=== PATIENT | male | born 1950 | race Hispanic/Latino ===

== ENCOUNTER 2018-12-16 12:21 | Day surgery (SDC) | payer OTHER ==
--- OUTSIDE RECORDS SUMMARY | 2018-12-16 12:28 | XMS REPORT ---
:1950 Author Organization eClinicalWorks Care Team Providers Name Role Phone Yoan Scales Provider Role Unavailable Allergies No Known Allergies Problems Problem Type Condition Code Onset Dates Condition Status Problem Unspecified urinary incontinence R32 Active Problem Anemia, chronic disease D63.8 Active Problem Type 2 diabetes mellitus without E11.9 Active complications Problem 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 incontinence Assessment Type 2 diabetes mellitus without E11.9 Active complications Problem Urge incontinence of urine N39.41 Active Problem CPAP (continuous positive airway Z99.89 Active pressure) dependence Problem Erectile dysfunction N52.9 Active Problem Allergic rhinitis, seasonal J30.2 Active Problem residential current use of insulin Z79.4 Active Problem Benign essential hypertension I10 Active Problem ANA (obstructive sleep apnea) G47.33 Active Assessment Hyperlipidemia E78.5 Active Assessment Benign essential hypertension I10 Active Problem Hyperlipidemia E78.5 Active Problem BMI 45.0-49.9, adult Z68.42 Active Problem Carotid artery stenosis and I65.29 Active occlusion Problem H/O Mar's palsy Z86.69 Active Problem Vitamin D deficiency E55.9 Active Problem Chronic vertigo R42 Active Medications Medication Code Code Instructions Start End Date Status Dosage System Date Bystolic [facility] 29758226402 20 MG Orally Active 1 tablet Once a day Olmesartan [facility] 31028378721 20 MG Orally Active 1 tablet Medoxomil Once a day Lovastatin [facility] 49608076403 20 MG Orally Active 1 tablet Once a day with a meal Metformin HCl [facility] 12717616300 500 MG Orally Active 1 tablet Twice a day with meals Amlodipine [facility] 04906457775 5 MG Orally Once Active 1 tablet Besylate a day Results No Known Results Summary Purpose eClinicalWorks Submission
--- OUTSIDE RECORDS SUMMARY | 2018-12-16 12:28 | XMS REPORT ---
:1950 Author Organization eClinicalWorks Care Team Providers Name Role Phone Yordy Yoan Provider Role Unavailable Allergies, Adverse Reactions, Alerts Substance Reaction Event Type Watermelon Info Not Available Non Drug Allergy Avacado Info Not Available Non Drug Allergy Problems Problem Type Condition Code Onset Dates Condition Status Assessment Dizziness and giddiness R42 Active Assessment Unspecified urinary incontinence R32 Active Assessment care home current use of insulin Z79.4 Active Problem H/O Mar's palsy Z86.69 Active Assessment Anemia, chronic disease D63.8 Active Problem Chronic vertigo R42 Active Assessment Vitamin D deficiency E55.9 Active Problem Unspecified urinary incontinence R32 Active Problem Anemia, chronic disease D63.8 Active Problem Type 2 diabetes mellitus without E11.9 Active complications Problem 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 incontinence Problem Urge incontinence of urine N39.41 Active Assessment Benign essential hypertension I10 Active Assessment Hyperlipidemia E78.5 Active Problem CPAP (continuous positive airway Z99.89 Active pressure) dependence Assessment H/O Mar's palsy Z86.69 Active Problem Erectile dysfunction N52.9 Active Problem Allergic rhinitis, seasonal J30.2 Active 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 Problem Benign essential hypertension I10 Active Problem ANA (obstructive sleep apnea) G47.33 Active Assessment ANA (obstructive sleep apnea) G47.33 Active Assessment Type 2 diabetes mellitus without E11.9 Active complications Problem Hyperlipidemia E78.5 Active Problem BMI 45.0-49.9, adult Z68.42 Active Problem Carotid artery stenosis and I65.29 Active occlusion Problem Vitamin D deficiency E55.9 Active Medications Medication Code Code Instructions Start End Status Dosage System Date Date Lovastatin [facility] 01908032138 20 MG Orally Active 1 tablet Once a day with a meal Bystolic [facility] 51149461082 20 MG Orally Active 1 tablet Once a day Aspirin ND 60073703072 81 MG Orally Active 1 tablet Once a day Metformin HCl ND 59800233396 500 MG Orally Active 1 tablet Twice a day with meals HydrALAZINE HCl [facility] 05426289779 100 MG Orally Active 1 tablet Three times a with food day CPap titration [facility] 95256700709 5 (28)-10 (21) Active not MG Orally defined Lovastatin [facility] 49301085742 20 MG Active TAKE 1 TABLET WITH A MEAL ONE TIME DAILY Olmesartan [facility] 96311081651 20 MG Orally Active 1 tablet Medoxomil Once a day Olmesartan [facility] 07960828054 20 MG Orally Active 1 tablet Medoxomil Once a day Daily Multiple NDC 0 Active not Vitamin/Iron defined Flonase Allergy [facility] 43492488322 50 MCG/ACT Active 1 spray in Relief Nasally Once a each day nostril Toujeo SoloStar [facility] 00726498092 300 UNIT/ML Active 55 units Subcutaneous 50 units every other night HydrALAZINE HCl [facility] 19465338956 100 MG Active TAKE 1 TABLET THREE TIMES DAILY WITH FOOD Amlodipine [facility] 22731367771 5 MG Orally Once Active 1 tablet Besylate a day Bystolic [facility] 34789417406 20 MG Active TAKE 1 TABLET EVERY DAY Vitamin D3 [facility] 14047799832 5000 UNIT Orally Active 1 capsule Maximum Once a day Strength Results No Known Results Summary Purpose eClinicalWorks Submission
--- OUTSIDE RECORDS SUMMARY | 2018-12-16 12:28 | XMS REPORT ---
:1950 Author Organization eClinicalWorks Care Team Providers Name Role Phone Yordy Yoan Provider Role Unavailable Allergies No Known Allergies [...] Problem Allergic rhinitis, seasonal J30.2 Active Problem jail current use of insulin Z79.4 Active Problem Benign essential hypertension I10 Active Problem ANA (obstructive sleep apnea) G47.33 Active Problem Hyperlipidemia E78.5 Active Problem BMI 45.0-49.9, adult Z68.42 Active Problem Carotid artery stenosis and I65.29 Active occlusion Problem H/O Mar's palsy Z86.69 Active Problem Vitamin D deficiency E55.9 Active Problem Chronic vertigo R42 Active Medications No Known Medications Results No Known Results Summary Purpose eClinicalWorks Submission
--- OUTSIDE RECORDS SUMMARY | 2018-12-16 12:28 | XMS REPORT ---
[...] Assessment Unspecified urinary incontinence R32 Active Assessment [facility] current use of insulin Z79.4 Active Problem [...] Problem Allergic rhinitis, seasonal J30.2 Active Problem [facility] current use of insulin Z79.4 Active Problem [...] Start End Status Dosage System Date Date Cozaar [facility] 78004762568 100 MG Orally Inactive 1 tablet Once a day Bystolic [facility] 68195798316 20 MG Orally Active 1 tablet Once a day Cozaar [facility] 40092955725 100 MG Orally Active 1 tablet Once a day CPap titration [facility] 83571792877 5 (28)-10 (21) Active not MG Orally defined HydrALAZINE HCl ND 08271006115 100 MG Orally Active 1 tablet Three times a with food day Bystolic ND 95595146928 20 MG Active TAKE 1 TABLET ONE TIME DAILY Daily Multiple NDC 0 Active not Vitamin/Iron defined HydrALAZINE HCl [facility] 36644954857 100 MG Active TAKE 1 TABLET THREE TIMES DAILY WITH FOOD Olmesartan [facility] 03828965637 20 MG Orally Active 1 tablet Medoxomil Once a day Metformin HCl [facility] 94154356501 500 MG Orally Active 1 tablet Twice a day with meals Toudonna LiebermanoStar [facility] 18053939542 300 UNIT/ML Active 55 units Subcutaneous 50 units every other night Amlodipine [facility] 13957187119 5 MG Orally Active 1 tablet Besylate Once a day Vitamin D3 [facility] 10660251051 5000 UNIT Active 1 capsule Maximum Orally Once a Strength day Lovastatin [facility] 87375103974 20 MG Orally Active 1 tablet Once a day with a meal Lovastatin [facility] 84548033089 20 MG Active TAKE 1 TABLET WITH A MEAL ONE TIME DAILY Aspirin [facility] 14387518024 81 MG Orally Active 1 tablet Once a day Flonase Allergy [facility] 36533193167 50 MCG/ACT Active 1 spray in Relief Nasally Once a each day nostril Olmesartan [facility] 61433807858 20 MG Orally Jun 20, Active 1 tablet Medoxomil Once a day 2018 Results No Known Results Summary Purpose eClinicalWorks Submission
--- OUTSIDE RECORDS SUMMARY | 2018-12-16 12:28 | XMS REPORT ---
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 Problem Allergic rhinitis, seasonal J30.2 Active Assessment Anemia, chronic disease D63.8 Active Problem Erectile dysfunction N52.9 Active Problem [facility] current use of insulin Z79.4 Active Problem Benign essential hypertension I10 Active Problem 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 incontinence Problem BMI 45.0-49.9, adult Z68.42 Active Assessment Hyperlipidemia E78.5 Active Assessment H/O Mar's palsy Z86.69 Active Problem Urge incontinence of urine N39.41 Active Assessment Vitamin D deficiency E55.9 Active Problem Carotid artery stenosis and I65.29 Active occlusion Problem ANA (obstructive sleep apnea) G47.33 Active Problem Hyperlipidemia E78.5 Active Problem Vitamin D deficiency E55.9 Active Assessment Type 2 diabetes mellitus without E11.9 Active complications Assessment Benign essential hypertension I10 Active Assessment ANA (obstructive sleep apnea) G47.33 Active Problem Unspecified urinary incontinence R32 Active Problem Type 2 diabetes mellitus without E11.9 Active complications Problem H/O Mar's palsy Z86.69 Active Problem Chronic vertigo R42 Active Medications Medication Code Code Instructions Start End Status Dosage System Date Date HydrALAZINE HCl ND 89143845804 100 MG Orally Active 1 tablet Three times a with food day Flonase Allergy ND 26637177417 50 MCG/ACT Active 1 spray in Relief Nasally Once a each day nostril [place] SoloStar ND 39186266193 300 UNIT/ML Active 55 units Subcutaneous 50 units every other night Lovastatin ND 55168679497 20 MG Orally Active 1 tablet Once a day with a meal CPap titration ND 71783030693 5 (28)-10 (21) Active not MG Orally defined Aspirin [facility] 26131136826 81 MG Orally Active 1 tablet Once a day Vitamin D3 [facility] 27301591483 5000 UNIT Orally Active 1 capsule Maximum Once a day Strength Metformin HCl [facility] 62900792401 500 MG Orally Active 1 tablet Twice a day with meals Bystolic [facility] 29035869332 20 MG Orally Active 1 tablet Once a day Lovastatin [facility] 33864948676 20 MG Orally Active 1 tablet Once a day with a meal Daily Multiple NDC 0 Active not Vitamin/Iron defined Bystolic [facility] 39540486210 20 MG Orally Active 1 tablet Once a day HydrALAZINE HCl [facility] 13250844737 100 MG Orally Active 1 tablet Three times a with food day Cozaar [facility] 92082086279 100 MG Orally Active 1 tablet Once a day Amlodipine [facility] 34522281017 5 MG Orally Once Active 1 tablet Besylate a day Cozaar [facility] 37752642395 100 MG Orally Active 1 tablet Once a day Results No Known Results Summary Purpose eClinicalWorks Submission
--- OUTSIDE RECORDS SUMMARY | 2018-12-16 12:28 | XMS REPORT ---
:1950 Author Organization eClinicalWorks Care Team Providers Name Role Phone Yordy Yoan Provider Role Unavailable Allergies No Known Allergies Problems Problem Type Condition Code Onset Dates Condition Status Problem Erectile dysfunction N52.9 Active Problem [facility] current use of insulin Z79.4 Active Problem Benign essential hypertension I10 Active Problem 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 incontinence Problem BMI 45.0-49.9, adult Z68.42 Active Problem Urge incontinence of urine N39.41 Active Problem Carotid artery stenosis and I65.29 Active occlusion Problem ANA (obstructive sleep apnea) G47.33 Active Problem Hyperlipidemia E78.5 Active Problem Vitamin D deficiency E55.9 Active Problem Unspecified urinary incontinence R32 Active Problem Type 2 diabetes mellitus without E11.9 Active complications Problem H/O Mar's palsy Z86.69 Active Problem Anemia, chronic disease D63.8 Active Problem Chronic vertigo R42 Active Problem Allergic rhinitis, seasonal J30.2 Active Medications No Known Medications Results No Known Results Summary Purpose eClinicalWorks Submission
[2018-12-16] MEDS ORDERED: NS 0.9% VIAL 10 ML ONE (12:53)
[2018-12-16] MEDS ORDERED: NA CHLORIDE 0.9% 500 ML ONE (13:02)
[2018-12-16] MEDS ORDERED: TETRACAINE HCL 0.5% 4ML OPTH ONE (13:02)
[2018-12-16] MEDS ORDERED: LIDOCAINE 2% MPF 5 ML VIAL ONE ×2 (13:02→13:29)
[2018-12-16] MEDS ORDERED: BUPIVACAINE 0.25% PF 10 ML VIAL ONE (13:02)
[2018-12-16] MEDS: CYCLOPENTOLATE 1% OPTH 2 ML ONE ×3 (13:10→13:20)
[2018-12-16] MEDS: PHENYLEPHRINE 10% OPTH 5ML ONE ×3 (13:10→13:20)
[2018-12-16] MEDS ORDERED: PROPOFOL 200 MG/20 ML VIAL IV ONE (13:28)
[2018-12-16] MEDS: EPINEPHRINE/PF 1 MG/ML AMP ONE ×4 (13:42→13:53)
[2018-12-16] MEDS: BALANCED SALT IRRIG PLAIN 500 ML BTL IRR ONE ×2 (13:42→13:53)
[2018-12-16] MEDS: DUOVISC 1 KIT OPTH ONE ×2 (13:43→13:53)
[2018-12-16] MEDS: MOXIFLOXACIN HCL 10 DROPS/ML **OR USE OPTH ONE ×2 (13:44→13:53)
[2018-12-16] MEDS ORDERED: EPINEPHRINE/PF 1 MG/ML AMP ONE (13:59)
--- NOTE | 2018-12-16 14:19 | P.BOP ---
Preoperative diagnosis: Nuclear sclerotic and cortical cataract OS Postoperative diagnosis: Same Primary procedure: Phacoemulsification with IOL OS Estimated blood loss: None Anesthesia: Local (Subtenon's infusion with anesthesia for cataract surgery) Complications: None Implants: ZCB00 +23.5 Transferred to: Other (Day surgery) Condition: Good
--- NOTE | 2018-12-17 00:47 | OP ---
Date of Procedure: 12/16/2018 Surgeon: Radha Rich MD Anesthesiologist: Deandre Leger CRNA and Carlos Mahoney MD. Preoperative Diagnosis: Nuclear sclerotic and cortical cataract, left eye. Operation Performed: Phacoemulsification with intraocular lens implant, left eye. Anesthesia: Per cataract surgery. Complications: None. Description Of Procedure: In day surgery, the patient was prepped with Betadine and draped. A conju nctival incision was made in the inferior nasal quadrant with Deion scissors. A sub-Tenon block c onsisting of a 1:1 mixture of 2% Xylocaine and 0.25% bupivacaine was placed through the conjunctival incision with a blunt cannula. A Honan balloon was placed over the eye and the patient was transferr ed to the operating room. In the operating room the patient was prepped and draped in the usual sterile fashion for ophthalmic surgery. A lid speculum was placed in the left eye. Two paracentesis sites were made superiorly and inferiorly in the limbal cornea. Viscoat was placed in the anterior chamber and a crescent blade wa s used to make a corneal groove and tunnel, and a keratome was used to enter the anterior chamber. P rovisc was placed in the anterior chamber and a 360 degree capsulotomy was performed with a cystitome . The lens was hydrodissected with BSS and rotated freely. The lens was removed with a stop and cho p technique. A 5.30 phaco CDE was used to remove the lens. Residual cortex was removed with the irr igation and aspiration. Provisc was placed in the capsular bag. A ZCB00 +23.5 lens was placed in th e capsular bag without complications. Irrigation and aspiration were used to remove residual viscoel astic. The paracentesis sites were hydrated with BSS. The wound and paracentesis sites were inspect ed and found to be watertight. Vigamox 0.07 cc was placed intracamerally at the end of the procedure . The eye was irrigated with balanced salt solution. The eye was patched with a soft cotton patch a nd Hawkins metal shield. The patient was returned to day surgery in good condition. Comments: A 1:5000 epinephrine was placed in the anterior chamber prior to Viscoat and the lens was hydrodelineated rather than hydrodissected. Discharge Instructions: Mr. Mejia is discharged to home in good condition and is to follow up with Dr Xiomara Rich in the morning. SRIDHAR/ELIZABETH Voice ID: [id number] Report ID: [id number]
== END 2018-12-16 14:56 | disposition home or self-care (01) ==
LOC: OR 12:21
PROVIDERS: ATTEND Ophthalmology Retina Specialist
PROC: 08RK3JZ Replacement of Left Lens with Synthetic Substitute, Percutaneous Approach (ICD-10-PCS; principal; 2018-12-16 12:40)
DX: H25.12 Age-related nuclear cataract, left eye (principal); H25.012 Cortical age-related cataract, left eye; E11.9 Type 2 diabetes mellitus without complications; I10 Essential (primary) hypertension; G47.33 Obstructive sleep apnea (adult) (pediatric); E66.01 Morbid (severe) obesity due to excess calories; Z68.42 Body mass index [BMI] 45.0-49.9, adult
CPT/HCPCS: 82962; 66984; J2704; J0171 ×3

== ENCOUNTER 2020-03-24 22:51 | Emergency (ER) | payer OTHER ==
--- OUTSIDE RECORDS SUMMARY | 2020-03-24 22:54 | XMS REPORT ---
:1950 Author Organization eClinicalWorks Care Team Providers Name Role Phone Yordy Yoan Provider Role Unavailable Allergies, Adverse Reactions, Alerts Substance Reaction Event Type Watermelon Info Not Available Non Drug Allergy [place] Info Not Available Non Drug Allergy Problems Problem Type Condition Code Onset Dates Condition Statu s Assessment snf current use of insulin Z79.4 Active Assessment Unspecified urinary incontinence R32 Active Assessment Vitamin D deficiency E55.9 Active Assessment Anemia, chronic disease D63.8 Acti ve Assessment H/O Mar's palsy Z86.69 Active Assessment Hyperlipidemia E78.5 Active Assessment Benign essential hypertension I10 Active Assessment Type 2 diabetes mellitus without E11.9 Active complications Assessment ANA (obstructive sleep apnea) G47.33 Active Problem Type 2 diabetes mellitus without E11.9 Active complications Assessment Right upper lobe pulmonary nodule R91.1 Active Problem Anemia, chronic disease D63.8 Acti ve Assessment Diplopia H53.2 Active Problem Allergic rhinitis, seasonal J30.2 Active Problem Benign essential hypertension I10 Active Problem Erectile dysfunction N52.9 Active Problem Right upper lobe pulmonary nodule R91.1 Active Problem Multiple lacunar infarcts I63.81 Ac tive Assessment Cerebral infarction due to I63.219 A ctive unspecified occlusion or stenosis of unspecified vertebral artery Problem Cerebral infarction due to I63.219 A ctive unspecified occlusion or stenosis of unspecified vertebral artery Assessment Multiple lacunar infarcts I63.81 Ac tive Problem 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 incontinence 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 Problem CPAP (continuous positive airway Z99.89 Active pressure) dependence Problem Urge incontinence of urine N39.41 A ctive Assessment Right leg weakness R29.898 Active Problem Vitamin D deficiency E55.9 Active Assessment Dizziness and giddiness R42 Acti ve Problem Hyperlipidemia E78.5 Active Problem ANA (obstructive sleep apnea) G47.33 Active Assessment History of falling Z91.81 Active Problem Carotid artery stenosis and I65.29 Active occlusion Problem Chronic vertigo R42 Active Problem Unspecified urinary incontinence R32 Active Problem BMI 45.0-49.9, adult Z68.42 Active Problem H/O Mar's palsy Z86.69 Active Medications Medication Code Code Instructions Start End Status Dosage System Date Date Flonase Allergy [facility] 32793492972 50 MCG/ACT Active 1 spray in Relief Nasally Once a each day nostril Metformin HCl ND 50361635077 500 MG Orally Active 1 tablet Twice a day with meals CPap titration [facility] 68877058402 5 (28)-10 () Active not MG Orally defined HydrALAZINE HCl [facility] 74521519379 100 MG Orally Active 1 tablet Three times a with food day Daily Multiple NDC 0 Active not Vitamin/Iron defined Toujeo SoloStar [facility] 25874749942 300 UNIT/ML Active 55 units Subcutaneous 50 units every other night Atorvastatin [facility] 24443563266 40 MG Orally Active 1 tablet Calcium Once a day Olmesartan [facility] 10613171652 40 MG Orally Active 1 ta blet Medoxomil Once a day Carvedilol [facility] 93724399750 6.25 MG Orally Active 1 tablet Twice a day with food Amlodipine ND 16321742625 5 MG Orally Active 1 tab let Besylate Once a day Aspirin ND 52666072981 81 MG Orally Active 1 table t Once a day Clopidogrel [facility] 49697648288 75 MG Orally Active 1 t ablet Bisulfate Once a day Vitamin D3 [facility] 29052856989 5000 UNIT Active 1 capsu le Maximum Orally Once a Strength day Lovastatin [facility] 69468900657 20 MG Orally Inactive 1 t ablet Once a day with a meal Results No Known Results Summary Purpose eClinicalWorks Submission
--- OUTSIDE RECORDS SUMMARY | 2020-03-24 22:54 | XMS REPORT ---
:1950 Author Organization eClinicalWorks Care Team Providers Name Role Phone Yordy Yoan Provider Role Unavailable Allergies No Known Allergies Problems Problem Type Condition Code Onset Dates Condition Statu s Problem Allergic rhinitis, seasonal J30.2 Active Problem Benign essential hypertension I10 Active Problem Erectile dysfunction N52.9 Active Problem Right upper lobe pulmonary nodule R91.1 Active Problem Multiple lacunar infarcts I63.81 Ac tive Assessment Right upper lobe pulmonary nodule R91.1 Active Assessment Incidental lung nodule R91.1 Activ e Problem Cerebral infarction due to I63.219 A ctive unspecified occlusion or stenosis of unspecified vertebral artery Problem 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 incontinence 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 Problem CPAP (continuous positive airway Z99.89 Active pressure) dependence Problem Urge incontinence of urine N39.41 A ctive Problem Vitamin D deficiency E55.9 Active Problem Hyperlipidemia E78.5 Active Problem ANA (obstructive sleep apnea) G47.33 Active Problem Carotid artery stenosis and I65.29 Active occlusion Problem Chronic vertigo R42 Active Problem Unspecified urinary incontinence R32 Active Problem BMI 45.0-49.9, adult Z68.42 Active Problem Type 2 diabetes mellitus without E11.9 Active complications Problem H/O Mar's palsy Z86.69 Active Problem Anemia, chronic disease D63.8 Acti ve Medications No Known Medications Results No Known Results Summary Purpose eClinicalWorks Submission
--- OUTSIDE RECORDS SUMMARY | 2020-03-24 22:54 | XMS REPORT | Continuity of Care Document ---
:1950 Author Organization [facility] t Address 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 [facility] current current [facility] - use of use of Memoria insulin insulin l [facility] Allergic Allergic Problem Active [facility] rhinitis, rhinitis, Luke s - seasonal seasonal Memori a [facility] Erectile Erectile Problem Active [facility] dysfunctio dysfunctio Razia kes - n n Memoria [facility] Benign Benign Problem Active [facility] essential essential Luke s - hypertensi hypertensi Me moria on on [facility] Mixed Mixed Problem Active [facility] stress and stress and Razia kes - urge urge Memoria urinary urinary l incontinen incontinen Ou tpati ce ce ent Clinics BMI BMI Problem Active [facility] 45.0-49.9, 45.0-49.9, Razia kes - adult adult Memoria [facility] Hyperlipid Hyperlipid Problem Active [facility] emia emia [facility] H/O Mar's H/O Mar's Problem Active [facility] palsy palsy [facility] Urge Urge Problem Active [facility] incontinen incontinen [facility]ia k[facility] Vitamin D Vitamin D Problem Active [facility] deficiency deficiency Razia kes - Memoria [facility] Carotid Carotid Problem Active [facility] artery artery [facility] - stenosis stenosis Memori a and and l occlusion occlusion Outp ati ent Clinics ANA ANA Problem Active [facility] (obstructi (obstructi Razia kes - ve sleep ve sleep Memori a apnea) apnea) l [facility] Type 2 Type [address] [facility] diabetes diabetes [facility] - mellitus mellitus Memori a without without l complicati complicati Ou tpati ons ons ent Clinics CPAP CPAP Problem Active [facility] (continuou (continuou Razia kes - s positive s positive Me moria airway airway l pressure) pressure) Outp ati dependence dependence en t Clinics Right Right Problem Active [facility] upper lobe upper lobe Razia kes - pulmonary pulmonary Jake magdi nodule nodule l [facility] Multiple Multiple Problem Active [facility] lacunar lacunar [facility] - infarcts infarcts Memori a l [facility] Cerebral Cerebral Problem Active [facility] infarction infarction Razia kes - due to due to Memoria unspecifie unspecifie l d d Outpati occlusion occlusion ent or or Clinics stenosis stenosis of of unspecifie unspecifie d d vertebral vertebral artery artery Allergies, Adverse Reactions, Alerts Allergy Allergy Status Severity Reaction(s) Onset Inactive Treating Comm ents Source Name Type Date Date Clinician Marissa Adverse Active Info Not [facility] on Reaction Available [facility] [place] Adverse Active Info Not [facility] Reaction Available [facility] Medications Ordered Filled Start Stop Current Ordering Indication Dosage Frequency Signature Comments Components Source Medication Medication Date Date Medication? Clinician (SIG) Name Name Carvedilol Carvedilol 0 Yes Yoan [address] [facility] 3-18 Scales with food [facility] - 00:00: Memoria 00 l [facility] Olmesartan Olmesartan Yes Yoan [address] [facility] [address] Medoxomil Medoxomil Scales Luke s - Memoria [facility] Clopidogrel Clopidogrel Yes Yoan [address] [facility] Bisulfate Bisulfate Scales Luke [facility] - [facility] Atorvastati Atorvastati Yes Yoan [address] [facility] n Calcium n Calcium Scales Luke s - Memoria [facility] Lovastatin Lovastatin Yes Yoan [address] [facility] Scales with a [facility]ukes - meal Memoria l [facility] Flonase Flonase Yes Yoan [address] [facility] Allergy Allergy Scales each [facility] - Relief Relief nostril Memoria l [facility] HydrALAZINE HydrALAZINE Yes Yoan [address] [facility] [address] HCl HCl Scales with food [facility] Daily Daily Yes Yoan not [facility] Multiple Multiple Scales defined Jase es - Vitamin/Iro Vitamin/Iro M emoria n n l [facility] CPap CPap Yes Yoan not [facility] titration titration Scales defined L [facility] - Memoria [facility] Metformin Metformin Yes Yoan [address] [facility] HCl HCl Scales with meals [facility] Aspirin Aspirin Yes Yoan [address] [facility] Scales [facility] Toujeo Toujeo Yes Yoan 55 units [facility] SoloStar SoloStar Scales [facility] Amlodipine Amlodipine Yes Yoan [address] [facility] [address] Besylate Besylate Scales [facility] Vitamin D3 Vitamin D3 Yes Yoan [address] [facility] Maximum Maximum Scales [facility] - Strength Strength Memoria l [facility] Procedures This patient has no known procedures. Encounters Start End Encounter Admission Attending Care Care Encounter Source Date/Time Date/Time Type Type Clinicians Facility Department ID 2020-03-02 2020-03-02 Refill Fox [facility] [id number] 00:00:00 00:00:00 Rama Mcclure [id number] Rosemary [id number] Renita [id number] [address] 2020-03-01 2020-03-01 Office Fox [facility] [id number] 14:18:11 15:05:10 Visit Rama Mcclure [id number] Rosemary [id number] [facility] [id number] [facility] 2020-01-26 2020-01-26 [facility] [id number] [facility] 07:49:00 07:49:00 t [place] MDS[facility] s - [facility] l Medicine Outpati ent Clinics 2020-01-13 2020-01-13 [facility] [id number] 16:17:00 16:17:00 t [place] MDS[facility] s - [place] [facility] l Medicine Outpati ent Clinics 2020-01-12 2020-01-12 [facility] [id number] 07:00:00 07:00:00 t [place] MDSave s - Drive [facility] l Medicine Outpati ent Clinics 2020-01-01 2020-01-01 [facility] [id number] 08:34:00 08:34:00 t [place] MDSave s - Hel[place] [facility] Medicine Outpati ent Clinics 2019-12-31 2019-12-31 [facility] [id number] 15:00:00 15:00:00 t [place] MDSave s - [place] [facility] l Medicine Outpati ent Clinics 2019-11-19 2019-11-19 [facility] [id number] 08:30:00 08:30:00 t [place] s - [place] [facility] l Medicine Outpati ent Clinics 2019-11-13 2019-11-13 [facility] [id number] 12:42:00 12:42:00 t [place] MDSave s - [place] [facility] l Medicine Outpati ent Clinics 2019-11-09 2019-11-09 [facility] [id number] 14:45:00 14:45:00 t [facility] - [facility] l Medicine Outpati ent Clinics 2019-08-19 2019-08-19 [facility] [id number] 16:39:00 16:39:00 t [place] MDSave s - Heliate[place] [facility] l Medicine Outpati ent Clinics 2019-08-19 2019-08-19 [facility] [id number] 10:30:00 10:30:[address] Luke s - Drive [facility] Medicine l Medicine Outpati ent Clinics 2019-07-24 2019-07-24 [facility] [id number] 15:26:00 15:26:[address] Luke s - Drive [facility] Medicine l Medicine Outpati ent Clinics 2019-04-16 2019-04-16 [facility] [id number] 11:12:00 11:12:[address] Luke s - Drive [facility] Medicine l Medicine Outpati ent Clinics 2019-04-15 2019-04-15 [facility] [id number] 14:58:00 14:58:[address] Luke s - Drive [facility] Medicine l Medicine Outpati ent Clinics 2019-04-09 2019-04-09 [facility] [id number] 11:00:00 11:00:[address] Luke s - Drive [facility] Medicine l Medicine Outpati ent Clinics 2019-02-06 2019-02-06 [facility] [id number] 13:21:00 13:21:[address] Luke s - Drive [facility] Medicine l Medicine Outpati ent Clinics 2019-01-07 2019-01-07 [facility] [id number] 10:45:00 10:45:[address] Luke s - Drive [facility] Medicine l Medicine Outpati ent Clinics 2018-12-10 2018-12-10 [facility] [id number] 13:10:00 13:10:[address] Luke s - Drive [facility] Medicine l Medicine Outpati ent Clinics 2018-10-07 2018-10-07 [facility] [id number] 15:03:00 15:03:[address] Luke s - Drive [facility] Medicine l Medicine Outpati ent Clinics 2018-10-02 2018-10-02 [facility] [id number] 16:15:00 16:15:[address] Luke s - Drive [facility] Medicine l Medicine Outpati ent Clinics 2018-06-20 2018-06-20 [facility] [id number] 10:30:00 10:30:00 t [place] [facility] Outpati ent Clinics 2018-03-05 2018-03-05 [facility] [id number] 10:00:00 10:00:00 t [place] [facility] Outpati ent Clinics 2017-12-20 2017-12-20 [facility] [id number] 11:35:00 11:35:00 t [place] [facility] Medicine Outpati ent Clinics 2017-12-03 2017-12-03 [facility] [id number] 11:30:00 11:30:00 t [place] [facility] Medicine Outpati ent Clinics Results This patient has no known results.
--- OUTSIDE RECORDS SUMMARY | 2020-03-24 22:54 | XMS REPORT ---
[...] Multiple lacunar infarcts I63.81 Ac tive Assessment Type 2 diabetes mellitus without E11.9 Active complications Problem Cerebral infarction due to I63.219 A ctive unspecified occlusion or stenosis of unspecified vertebral artery Problem 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 incontinence Problem medical terminologist current use of insulin Z79.4 Active Problem [...]
--- OUTSIDE RECORDS SUMMARY | 2020-03-24 22:54 | XMS REPORT ---
[...] Multiple lacunar infarcts I63.81 Ac tive Assessment Adrenal mass 1 cm to 4 cm in E27.8 Active diameter Problem Cerebral infarction due to I63.219 A ctive unspecified occlusion or stenosis of unspecified vertebral artery Problem 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 incontinence Problem penitentiary current use of insulin Z79.4 Active Problem [...]
--- OUTSIDE RECORDS SUMMARY | 2020-03-24 22:55 | XMS REPORT | Summary of Care ---
:1950 Author Organization [facility] Address [address] [place] [address] Care Team Providers Name Role Phone Yoan Scales Primary Care Provider Reason for Visit Reason Comments Follow-up 3mo Encounter Details Date Type Department Care Team Description 03/01/2020 Office Visit [facility] Rama Braxton M D Essential hypertension (Primary Dx); Cardiology- [address] Dizziness; [address] [place] [address] DRIVE Morbid obesity; Drive, [address] ANA on CPAP [place], [place] [phone] Allergies No Known Allergiesdocumented as of this encounter (statuses as of 03/01/2020) Medications Medication Sig Dispensed Refills Start Date End Date Status metFORMIN 500 mg 24 Take 500 mg 0 Active hr tablet by mouth 2 (two) times daily with meals. CALCIUM Take 2,000 0 Active CARBONATE/VITAMIN D3 Int'l Units (VITAMIN D-3 ORAL) by mouth daily. aspirin 81 mg Take 81 mg 0 Activ e chewable tablet by mouth daily. insulin glargine inject 50 0 Act garth (TOUJEO SOLOSTAR) Units under 300 unit/mL (1.5 mL) the skin InPn every other day. MULTIVITAMIN Take by 0 Active ORALIndications: D 3 mouth 125 mcg one a day daily. Indications : D 3 125 mcg one a day carvediloL 6.25 mg Take 6.25 0 A ctive tablet mg by mouth 2 (two) times daily. atorvastatin 40 mg Take 1 30 tablet 2 11/11/2019 Active tabletIndications: tablet by Cerebrovascular mouth at accident (CVA), bedtime. unspecified mechanism olmesartan 40 mg Take 40 mg 0 Ac tive tablet by mouth daily. docusate sodium Take by 0 Acti ve (STOOL SOFTENER mouth ORAL) daily. hydrALAZINE 100 mg Take 1 0 12/03/2019 Active tablet tablet by mouth every 8 (eight) hours. amLODIPine 10 mg Take 1 30 tablet 3 03/01/2020 Ac tive tabletIndications: tablet by Essential mouth hypertension daily. CALCIUM CARBONATE Take 1,200 0 D iscontinued ORAL mg by mouth 0 (Duplica te) daily. documented as of this encounter (statuses as of 03/01/2020) Active Problems Problem Noted Date E46 Unspecified severe protein-calorie malnutrition 0 11/10/2019 Stroke 11/10/2019 Dizziness 11/09/2019 documented as of this encounter (statuses as of 03/01/2020) Social History Tobacco Use Types Packs/Day Years Used Date Never Smoker Smokeless Tobacco: Never Used Alcohol Use Drinks/Week oz/Week Comments No Sex Assigned at Date Recorded Not on file COVID-19 Exposure Response Date Recorded In the last month, have you been in contact with No / Unsure 03/01/2020 2:39 PM CDT someone who was confirmed or suspected to have Coronavirus / COVID-19? documented as of this encounter Last Filed Vital Signs Vital Sign Reading Time Taken Comments Blood Pressure 150/79 03/01/2020 2:47 PM CDT Pulse 66 03/01/2020 2:47 PM CDT Temperature - - Respiratory Rate 19 03/01/2020 2:44 PM CDT Oxygen Saturation 94% 03/01/2020 2:44 PM CDT Inhaled Oxygen Concentration - - Weight 137.6 kg (303 lb 6.4 oz) 03/01/2020 2:44 PM CDT Height 167.6 cm (5' 6") 03/01/2020 2:44 PM CDT Body Mass Index 48.97 03/01/2020 2:44 PM CDT documented in this encounter Patient Instructions Patient InstructionsRama Braxton MD - 03/01/2020 2:20 PM CDTAmlodipine, carvedilol, olmesartan, hydralazine--try to hold one medicine for a week at a time trying to find out which one is causing dizziness documented in this encounter Progress Notes Rama Braxton MD - 03/01/2020 2:20 PM CDT CARDIOLOGY CLINIC NOTE 03/01/2020 Reason for Referral/Presenting Complaint: HTN, dizziness PCP: Yoan Scales History of Present Illness: Miguel Mejia is a 69 years old male with history of DM, HTN, HLD, obesity, ANA on C-PAP and moderate carotid artery disease (50%). He was here to evaluate dizziness and falls. We have reduced antihypertensives. His dizziness has continued. It occurs with any position. He has been through extensive cardiac evaluation including ECHO/Holter/Catotid duplex etc. He saw Dr. Rodriguez for a 2nd opinion. In 11/2019 he was admitted to [facility] for stroke. Presented with double vision. ECHO showed an interatrial shunt. Home BP now 140-150s. His main complaint is still dizziness without vertigo. ECHO 11/201920 Grade II diastolic dysfunction with elevated LA pressure. There is concentric remodeling. Left ventricular systolic function is normal. Ejection Fraction = 60-65%. Grade II diastolic dysfunction with elevated LA pressure. The left ventricular wall motion is normal. Injection of agitated saline contrast documented a significant interatrial shunt. Review of Systems: General: (-) fever, (-) chills, (-) weight change, (+) dizziness, (-) fatigue Skin: (-) rash HEENT: (-) headache, (-) change in vision Neck: (-) difficulty swallowing Heme: negative Resp: (-) cough, (-) dyspnea on exertion Cardio: (-) chest pain, (-) palpitations, (-) syncope GI: (-) vomiting, (-) diarrhea : negative Endo: (-) diabetes, (-) thyroid disease Neuro: (-) numbness, (-) tingling, (-) weakness Back: (-) pain NGA: (-) muscle pain, (-) claudication Psych: (-) anxiety, (-) depression Past Medical History: Past Medical History: Diagnosis Date Mar palsy DM (diabetes mellitus) HTN (hypertension) Current Medications: Current Outpatient Medications Medication Sig Dispense Refill amLODIPine 10 mg tablet Take 1 tablet by mouth daily. 30 tablet 3 hydrALAZINE 100 mg tablet Take 1 tablet by mouth every 8 (eight) hours. docusate sodium (STOOL SOFTENER ORAL) Take by mouth daily. olmesartan 40 mg tablet Take 40 mg by mouth daily. carvediloL 6.25 mg tablet Take 6.25 mg by mouth 2 (two) times daily. aspirin 81 mg chewable tablet Take 81 mg by mouth daily. CALCIUM CARBONATE/VITAMIN D3 (VITAMIN D-3 ORAL) Take 2,000 Int'l Units by mouth daily. insulin glargine (TOUJEO SOLOSTAR) 300 unit/mL (1.5 mL) InPn inject 50 Units under the skin every other day. metFORMIN 500 mg 24 hr tablet Take 500 mg by mouth 2 (two) times daily with meals. MULTIVITAMIN ORAL Take by mouth daily. Indications: D 3 125 mcg one a day atorvastatin 40 mg tablet Take 1 tablet by mouth at bedtime. 30 tablet 2 No current facility-administered medications for this visit. Social History: Social History Socioeconomic History Marital status: Spouse name: Not on file Number of children: Not on file Years of education: Not on file Highest education level: Not on file Occupational History Not on file Social Needs Financial resource strain: Not on file Food insecurity Worry: Not on file Inability: Not on file Transportation needs Medical: Not on file Non-medical: Not on file Tobacco Use Smoking status: Never Smoker Smokeless tobacco: Never Used Substance and Sexual Activity Alcohol use: No Drug use: No Sexual activity: Not on file Lifestyle Physical activity Days per week: Not on file Minutes per session: Not on file Stress: Not on file Relationships Social connections Talks on phone: Not on file Gets together: Not on file Attends rastafarian service: Not on file Active member of club or organization: Not on file Attends meetings of clubs or organizations: Not on file Relationship status: Not on file Intimate partner violence Fear of current or ex partner: Not on file Emotionally abused: Not on file Physically abused: Not on file Forced sexual activity: Not on file Other Topics Concern Not on file Social History Narrative Not on file Family History Family History Problem Relation Age of Onset [place] (myocardial infarction) Father 60 Physical Examination: BP (!) 150/79 | Pulse 66 | Resp 19 | Ht 5' 6" (1.676 m) | Wt 303 lb 6.4 oz (137.6 kg) | SpO2 94% | BMI 48.97 kg/m Constitutional: alert and oriented x 3 (person, place and date/time); no apparent distress, obese ENT: normocephalic atraumatic, supple, no lymphadenopathy, no bruits, no JVD Lungs: clear to auscultation bilaterally Cardiovascular: S1, S2 normal, regular; no murmurs, rubs or gallops GI: soft; non-tender; + distended; normoactive bowel sounds : not examined Musculoskeletal: Extremities: no clubbing, cyanosis, + trace pitting edema Skin: no rashes Neuro: no focal deficits Cardiovascular testing: EKG: Sinus bradycardia, HR 54 bpm. Assessment/Plan: ICD-10-CM ICD-9-CM 1. Essential hypertension I10 401.9 2. Dizziness R42 780.4 3. Morbid obesity E66.01 278.01 4. ANA on CPAP G47.33 327.23 Z99.89 V46.8 HTN--His BP is mildly elevated. However dizziness is a barrier. Unclear if BP medications are causing dizziness. Advised him to hold on 1 BP pill for a week and find out if medications are the problem.Advised to increase amlodipine to 10 mg. Continue current antihypertensives--hydralazine, olmesartan, and coreg. HLD/Carotid disease--On ASA and statins. With DM and carotid disease, consider goal LDL of 70 and moderate to high intensity statins. Stroke--on ASA/plavix. Sees Neurology in [place]. Interatrial shunt--doubt the correlation with his stroke. Patient was counseled for lifestyle modifications including: diet, exercise and weight loss. RTC 1 month Rama Braxton MD, FACC, GLADYS Medical Assistant, Division of Cardiology [facility] documented in this encounter Plan of Treatment Date Type Specialty Care Team Description 03/31/2020 Office Visit Cardiology Rama Braxton M D [address] [address] 15 [phone] Health Maintenance Due Date Last Done Comments HEPATITIS C (HCV) SCREEN 1950 DTaP,Tdap,and Td Vaccines (1 - Tdap) 1969 COLON CANCER SCREENING ANNUAL FIT/FOBT 2000 COLON CANCER SCREENING FIT DNA EVERY 3 YEARS 2000 COLON CANCER SCREENING SIGMOIDOSCOPY EVERY 5 YEARS 2000 COLONOSCOPY 2000 Colorectal Cancer Screening 2000 Zoster Recombinant Vaccine (SHINGRIX) (1 of 2) 2000 Medicare Wellness Visit 2015 PNEUMOCOCCAL VACCINES 65+ (1 of 1 - PPSV23) 2015 INFLUENZA VACCINE (#1) 2020 Depression Screening 03/01/2021 03/01/2020 documented as of this encounter Results Not on filedocumented in this encounter Visit Diagnoses Diagnosis Essential hypertension - Primary Unspecified essential hypertension Dizziness Dizziness and giddiness Morbid obesity ANA on CPAP Obstructive sleep apnea (adult) (pediatr ic) documented in this encounter Insurance Payer Benefit Plan / Subscriber ID Effective Phone Address T ype Group Dates MEDICARE MEDICARE PART A [id number] 2015-Pre [phone] [address] X Medicare & B sent [phone] [address] [phone] CONTINENTAL CONTINENTAL [id number] 2015-Pre I ndemnity [employer] sent documented as of this encounter
--- OUTSIDE RECORDS SUMMARY | 2020-03-24 22:55 | XMS REPORT ---
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
--- OUTSIDE RECORDS SUMMARY | 2020-03-24 22:55 | XMS REPORT | Summary of Care ---
:1950 Author Organization [facility] Address [address] [place] [address] Care Team Providers Name Role Phone Yoan Scales Primary Care Provider Reason for Visit Reason Comments Follow-up 3mo Encounter Details Date Type Department Care Team Description 03/01/2020 Office Visit [facility] Rama Braxton M D Essential hypertension (Primary Dx); Cardiology- [address] Dizziness; [address] [place] [address] DRIVE Morbid obesity; Drive, [address] ANA on CPAP [place], [place] [phone] Allergies No Known Allergiesdocumented as of this [...] opinion. In 11/2019 he was admitted to [facility] for stroke. Presented with double vision. ECHO [...] file Gets together: Not on file Attends jew service: Not on file Active member of [...] Family History Problem Relation Age of Onset [place] (myocardial infarction) Father 60 Physical Examination: BP [...] intensity statins. Stroke--on ASA/plavix. Sees Neurology in [place]. Interatrial shunt--doubt the correlation with his stroke. Patient was counseled for lifestyle modifications including: diet, exercise and weight loss. RTC 1 month Rama Braxton MD, FACC, GLADYS Casino Cage Supervisor, Division of Cardiology [facility] documented in this encounter Plan of Treatment Date Type Specialty Care Team Description 03/31/2020 Office Visit Cardiology Rama Braxton M D [address] [address] [phone] Health Maintenance Due Date Last Done Comments [...] ype Group Dates MEDICARE MEDICARE PART A [id number] 2015-Pre [phone] [address] [facility] Medicare & B sent [phone] [address] [place] [phone] CONTINENTAL CONTINENTAL [id number] 2015-Pre I ndemnity [employer] sent documented as of this encounter
--- OUTSIDE RECORDS SUMMARY | 2020-03-24 22:55 | XMS REPORT | Summary of Care ---
:1950 Author Organization [facility] Address [address] [place] [id number] Care Team Providers Name Role Phone Yoan Scales Primary Care Provider Reason for Visit Reason Comments Refill Request Encounter Details Date Type Department Care Team Description 03/02/2020 Refill [facility] Cardiology- Zoran Braxton MD Refill Request [address] [facility], [address] [place] [address] [place] [address] [phone] Allergies No Known Allergiesdocumented as of this encounter (statuses as of 03/05/2020) Medications Medication Sig Dispensed Refills Start Date [...] inject 50 0 Act garth (TOUJEO SOLOSTAR) 300 Units under unit/mL (1.5 mL) InPn the skin every other day. MULTIVITAMIN Take by 0 Active ORALIndications: D 3 mouth daily. 125 mcg one a day Indications: D 3 125 mcg one a day carvediloL 6.25 mg Take 6.25 mg 0 Active tablet by mouth 2 (two) times daily. atorvastatin 40 mg Take 1 30 tablet 2 11/11/2019 Active tabletIndications: tablet by Cerebrovascular mouth at accident (CVA), bedtime. unspecified mechanism olmesartan 40 mg Take 40 mg 0 Ac tive tablet by mouth daily. docusate sodium Take by 0 Acti ve (STOOL SOFTENER ORAL) mouth daily. hydrALAZINE 100 mg Take 1 0 12/03/2019 Active tablet tablet by mouth every 8 (eight) hours. AMLODIPINE 10 mg TAKE 1 270 tablet 1 03/05/2020 A ctive tabletIndications: TABLET BY Essential MOUTH EVERY hypertension DAY amLODIPine 10 mg Take 1 30 tablet 3 03/01/2020 Di scontinued tabletIndications: tablet by 0 Essential mouth daily. hypertension documented as of this encounter (statuses as of 03/05/2020) Active Problems Problem Noted Date E46 Unspecified severe protein-calorie malnutrition 0 11/10/2019 Stroke 11/10/2019 Dizziness 11/09/2019 documented as of this encounter (statuses as of 03/05/2020) Social History Tobacco Use Types Packs/Day Years [...] of this encounter Last Filed Vital Signs Not on filedocumented in this encounter Plan of Treatment Date Type Specialty Care Team Description 03/31/2020 Office Visit Cardiology Rama Braxton M D [address] [place] [address] [phone] Health Maintenance Due Date Last Done Comments [...] this encounter Visit Diagnoses Diagnosis Essential hypertension Unspecified essential hypertension documented in this encounter Insurance Payer Benefit Plan / Subscriber ID Effective Phone Address T [facility] Group Dates MEDICARE MEDICARE PART A [id number] 2015-Pre [phone] [address] Medicare & B sent [phone] [address]ER [phone] [facility] [id number] 2015-Pre I ndemnity [employer] sent documented as of this encounter
[2020-03-24] MEDS ORDERED: MEPERIDINE HCL 50 MG/ML ONE (23:10)
[2020-03-24] MEDS ORDERED: ONDANSETRON 4 MG/2 ML VIAL ONE (23:10)
--- NOTE | 2020-03-25 00:26 | EDPHYS ---
Physician Documentation [facility] Name: Torito Mejia Age: 70 yrs Sex: Male : 1950 Arrival Date: 03/24/2020 Time: 22:52 Bed 17 Private MD: ED Physician Amrit Murphy HPI: 03/24 23:30 This 70 yrs old Male presents to ER via EMS with complaints of right leg pain. rn 23:30 The patient presents with a deformity, an injury, pain. The complaints affect the right rn quadriceps and right knee. Onset: The symptoms/episode began/occurred just prior to arrival. Modifying factors: The symptoms are alleviated by nothing. the symptoms are aggravated by movement, bending knee. Severity of symptoms: At their worst the symptoms were moderate, in the emergency department the symptoms have improved. The patient has experienced similar episodes in the past. Reports recurrent falls, fell again prior to arrival, landed on right knee, + swelling and painful ROM, no other injury, not on blood thinners. Given ketamine by EMS with improvement of pain.. Historical: - Allergies: 23:09 No Known Allergies; ll2 - Home Meds: 23:09 amlodipine 2.5 mg tab 1 tab once daily [Active]; metformin 500 mg Oral tab 1 tab 2 ll2 times per day [Active]; hydralazine 100 mg Oral tab 1 tab 3 times per day [Active]; olmesartan oral oral [Active]; carvedilol 6.25 mg oral tab 1 tab 2 times per day [Active]; atorvastatin 40 mg oral tab 1 tab once daily [Active]; - PMHx: 23:09 Hypertension; Diabetes - IDDM; ll2 - Immunization history:: Adult Immunizations up to date. - Social history:: Smoking status: Patient/guardian denies using tobacco products. - Family history:: not pertinent. - Hospitalizations: : No recent hospitalization is reported. ROS: 23:30 Constitutional: Negative for fever, chills, and weight loss, Eyes: Negative for injury, rn pain, redness, and discharge, Neck: Negative for injury, pain, and swelling, Cardiovascular: Negative for chest pain, palpitations, and edema, Respiratory: Negative for shortness of breath, cough, wheezing, and pleuritic chest pain, Abdomen/GI: Negative for abdominal pain, nausea, vomiting, diarrhea, and constipation, Back: Negative for injury and pain, MS/Extremity: + right leg injury and deformity. Skin: Negative for injury, rash, and discoloration, Neuro: Negative for headache, weakness, numbness, tingling, and seizure. Exam: 23:30 Constitutional: Morbidly obese male, laying on left side of body, + moderate swelling rn and pain right knee/distal thigh, DP pedis pulses equal. No cyanosis. Head/Face: Normocephalic, atraumatic. Neck: NO midline tenderness Chest/axilla: No rib tenderness or crepitus. Cardiovascular: Regular rate and rhythm. No pulse deficits. Respiratory: No increased work of breathing, no retractions or nasal flaring. Abdomen/GI: soft, non-tender Back: No spinal tenderness. No costovertebral tenderness. Full range of motion. MS/ Extremity: Pulses equal, no cyanosis. + tenderness and swelling right knee and distal right thigh, no open wounds Neuro: Awake and alert, GCS 15, oriented to person, place, time, and situation. Vital Signs: 23:10 BP 146 / 75; Pulse 66; Resp 16; Pulse Ox 94% on R/A; ll2 03/25 00:02 BP 134 / 69; Pulse 72; Resp 18; Pulse Ox 97% on R/A; ll2 01:41 BP 106 / 62; Pulse 72; Resp 14; Pulse Ox 98% on R/A; ll2 MDM: 03/24 22:52 Patient medically screened. rn 03/25 00:23 Differential diagnosis: closed fracture. Data reviewed: vital signs, nurses notes, rn radiologic studies, plain films, and as a result, I will admit patient. Test interpretation: by ED physician or midlevel provider: plain radiologic studies, Xray right femur and knee show distal right femur comminuted fracture. Counseling: I had a detailed discussion with the patient and/or guardian regarding: the historical points, exam findings, and any diagnostic results supporting the discharge/admit diagnosis, radiology results, the need to transfer to another facility, [facility] does not immediately have the required specialist. Response to treatment: the patient's symptoms have mildly improved after treatment, and as a result, I will admit patient. Admission orders: after a detailed discussion of the patient's condition and case, the admit orders are written by me. ED course: No ortho here, + distal comminuted femur fracture, isolated, will transfer to [facility] for orthopedic care. Stable for transfer. Improved with pain medication, still having some pain but after last dose, mild drop in O2 sat and BP. Will monitor and given more pain control when possible. . 03/25 02:05 Order name: SARS-COV-2 RT PCR; Complete Time: 02:19 EDMS 03/24 22:52 Order name: XRAY Knee RIGHT 3 view rn 03/24 22:53 Order name: IV Start; Complete Time: 22:54 rn 03/24 23:30 Order name: Splint - Posterior Leg; Complete Time: 00:58 rn Administered Medications: 03/24 23:05 Drug: Demerol 25 mg Route: IVP; Site: right forearm; ll2 23:33 Follow up: Response: No adverse reaction ll2 23:06 Drug: Zofran (Ondansetron) 4 mg Route: IVP; Site: right forearm; ll2 23:33 Follow up: Response: No adverse reaction ll2 23:29 Drug: Demerol 25 mg Route: IVP; Site: right forearm; ll2 23:34 Follow up: Response: No adverse reaction ll2 03/25 00:48 Drug: fentaNYL (PF) 25 mcg {Note: RASS 0.} Route: IVP; Site: right antecubital; ea Disposition: 03/25/20 00:26 Transfer ordered to [facility]. Diagnosis is Displaced oblique fracture of shaft of right femur. - Reason for transfer: Higher level of care. - Accepting physician is Dr. Cid. - Condition is Stable. - Problem is new. - Symptoms have improved. Signatures: Dispatcher [employer] EDMS Amrit Murphy MD MD rn Antunez, Elena, RN RN ea Linscombe, Lacie, RN RN ll2 Corrections: (The following items were deleted from the chart) 01:16 00:26 03/25/2020 00:26 Transfer ordered to [facility]. rn Diagnosis is Displaced oblique fracture of shaft of right femur. Reason for transfer: Higher level of care. Accepting physician is . Condition is Stable. Problem is new. Symptoms have improved. rn 02:25 01:16 03/25/2020 00:26 Transfer ordered to [facility]. ll2 Diagnosis is Displaced oblique fracture of shaft of right femur. Reason for transfer: Higher level of care. Accepting physician is Dr. Cid. Condition is Stable. Problem is new. Symptoms have improved. rn
--- NOTE | 2020-03-25 00:26 | ER ---
Nurse's Notes [facility] Name: Torito Mejia Age: 70 yrs Sex: Male : 1950 Arrival Date: 03/24/2020 Time: 22:52 Bed 17 Private MD: Diagnosis: Displaced oblique fracture of shaft of right femur Presentation: 03/24 23:11 Chief complaint: EMS states: pt fell and tripped and landed on rt knee, noted ll2 deformation to RT knee cap. Coronavirus screen: Client denies travel out of the [place] in the last 14 days. At this time, the client does not indicate any symptoms associated with coronavirus-19. Ebola Screen: No symptoms or risks identified at this time. Initial Sepsis Screen: Does the patient meet any 2 criteria? No. Patient's initial sepsis screen is negative. Does the patient have a suspected source of infection? No. Patient's initial sepsis screen is negative. Risk Assessment: Do you want to hurt yourself or someone else? Patient reports no desire to harm self or others. Onset of symptoms was March 24, 2020. 23:11 Acuity: BRANDIE 3 ll2 23:11 Method Of Arrival: EMS: [facility] ll2 Historical: - Allergies: 23:09 No Known Allergies; ll2 - Home Meds: 23:09 amlodipine 2.5 mg tab 1 tab once daily [Active]; metformin 500 mg Oral tab 1 tab 2 ll2 times per day [Active]; hydralazine 100 mg Oral tab 1 tab 3 times per day [Active]; olmesartan oral oral [Active]; carvedilol 6.25 mg oral tab 1 tab 2 times per day [Active]; atorvastatin 40 mg oral tab 1 tab once daily [Active]; - PMHx: 23:09 Hypertension; Diabetes - IDDM; ll2 - Immunization history:: Adult Immunizations up to date. - Social history:: Smoking status: Patient/guardian denies using tobacco products. - Family history:: not pertinent. - Hospitalizations: : No recent hospitalization is reported. Screenin:10 Abuse screen: Denies threats or abuse. Nutritional screening: No deficits noted. ll2 Tuberculosis screening: No symptoms or risk factors identified. Fall Risk IV access (20 points). Ambulatory Aid- Gait- Impaired (20 pts.). Mental Status- Oriented to own ability (0 pts). Total Coe Fall Scale indicates High Risk Score (45 or more points). Fall prevention measures have been instituted. Side Rails Up X 2 Placed Close to Nursing Station Family Present and informed to notify staff if the need to leave the bedside. Assessment: 22:54 General: Appears in no apparent distress. Behavior is calm, cooperative, appropriate ll2 for age. Pain: Complains of pain in medial aspect of right knee and right knee. Neuro: Level of Consciousness is awake, alert, obeys commands, Oriented to person, place, time, situation. Cardiovascular: Capillary refill < 3 seconds Patient's skin is warm and dry. Respiratory: Airway is patent Respiratory effort is even, unlabored, Respiratory pattern is regular, symmetrical. GI: No signs and/or symptoms were reported involving the gastrointestinal system. : No signs and/or symptoms were reported regarding the genitourinary system. EENT: No signs and/or symptoms were reported regarding the EENT system. Derm: Skin is intact, is healthy with good turgor, Skin is dry, Skin is pink, warm \T\ dry. Skin temperature is warm. Musculoskeletal: Circulation, motion, and sensation intact. Range of motion: limited in right knee. 23:32 Reassessment: Patient and/or family updated on plan of care and expected duration. Pain ll2 level reassessed. Patient is alert, oriented x 3, equal unlabored respirations, skin warm/dry/pink. pt states pain is still 12/10, ERD notified, verbal order obtained for 25 mg of Demerol. 03/25 00:05 Reassessment: Patient and/or family updated on plan of care and expected duration. Pain ll2 level reassessed. Patient is alert, oriented x 3, equal unlabored respirations, skin warm/dry/pink. 02:05 Reassessment: Patient and/or family updated on plan of care and expected duration. Pain ll2 level reassessed. Patient is alert, oriented x 3, equal unlabored respirations, skin warm/dry/pink. report given to SERA Botello. Vital Signs: 03/24 23:10 BP 146 / 75; Pulse 66; Resp 16; Pulse Ox 94% on R/A; ll2 03/25 00:02 BP 134 / 69; Pulse 72; Resp 18; Pulse Ox 97% on R/A; ll2 01:41 BP 106 / 62; Pulse 72; Resp 14; Pulse Ox 98% on R/A; ll2 ED Course: 03/24 22:52 Patient arrived in ED. rn 22:52 Amrit Murphy MD is Attending Physician. rn 22:53 Rosa Gong RN is Primary Nurse. ll2 23:11 Maintain EMS IV. Dressing intact. Good blood return noted. Site clean \T\ dry. Gauge \T\ ll 2 site: 20 G to Rt forearm. 23:12 Triage completed. ll2 23:13 Patient has correct armband on for positive identification. Call light in reach. Side ll2 rails up X 1. Adult w/ patient. Pulse ox on. NIBP on. 23:13 Arm band placed on right wrist. ll2 23:58 Initiated transfer at [facility] with Unruly. tt3 03/25 00:09 XRAY Knee RIGHT 3 view In Process Unspecified. EDMS 00:26 Unruly called back with their ortho physician for Dr. Murphy. tt3 00:52 Unruly called back with Dr. Cid to speak with Dr. Murphy regarding the pt case. tt3 01:05 Lucie Lala called back with administrative approval. The accepting physician is Dr. avis Cid. The pt is going to room 1861. Face sheet faxed to . Report to be called to [phone]. 02:00 Spoke with Alis at [facility] and they will transfer pt. tt3 02:14 [facility] arrived to transfer the pt. tt3 02:25 No provider procedures requiring assistance completed. Patient transferred, IV remains ll2 in place. Administered Medications: 03/24 23:05 Drug: Demerol 25 mg Route: IVP; Site: right forearm; ll2 23:33 Follow up: Response: No adverse reaction ll2 23:06 Drug: Zofran (Ondansetron) 4 mg Route: IVP; Site: right forearm; ll2 23:33 Follow up: Response: No adverse reaction ll2 23:29 Drug: Demerol 25 mg Route: IVP; Site: right forearm; ll2 23:34 Follow up: Response: No adverse reaction ll2 03/25 00:48 Drug: fentaNYL (PF) 25 mcg {Note: RASS 0.} Route: IVP; Site: right antecubital; ea Outcome: 00:26 ER care complete, transfer ordered by . sera 02:25 Transferred by ground EMS to [facility]. 2 02:25 Condition: stable 02:25 Instructed on the need for transfer. 02:25 Patient left the ED. ll2 Signatures: Dispatcher [employer] EDMS Amrit Murphy MD MD rn Antunez, Elena, RN RN ea Linscombe, Lacie, RN RN 2 Panchito An tt3 Corrections: (The following items were deleted from the chart) 00:59 00:48 fentaNYL (PF) 25 mcg IVP in right antecubital ea ea
[2020-03-25] MEDS ORDERED: FENTANYL CITR 100 MCG/2 ML ONE (00:56)
[2020-03-25 02:36] VITALS: BP 106/62; O2SAT 98
--- NOTE | 2020-03-25 08:01 | RAD REPORT ---
EXAM DESCRIPTION: RAD - Knee Right 3 View - 03/25/2020 12:00 am CLINICAL HISTORY: Right knee pain status post injury FINDINGS: Moderately displaced fracture involves the distal femoral diaphysis extending into the met aphysis. It equivocally extends to the articulating surface of distal lateral femoral condyle Angulation is present at fracture site. No dislocation
== END 2020-03-25 02:25 | disposition short-term general hospital (02) ==
LOC: ER 22:51
PROC: 2W3LX1Z Immobilization of Right Lower Extremity using Splint (ICD-10-PCS; principal; 2020-03-25)
DX: S72.331A Displaced oblique fracture of shaft of right femur, initial encounter for closed fracture (principal); W19.XXXA Unspecified fall, initial encounter; Y93.9 Activity, unspecified; Y92.9 Unspecified place or not applicable; Z20.828 Contact with and (suspected) exposure to other viral communicable diseases; I10 Essential (primary) hypertension; E11.9 Type 2 diabetes mellitus without complications
CPT/HCPCS: 73562; 99285; 29505; U0003; J3010; J2175; J2405